=== PATIENT | male | born 1975 | race African-American/Black ===

== ENCOUNTER → 2016-09-27 23:37 | Emergency (ER) | payer SELFPAY ==
[~2016-09-27 23:37] MED LIST: BACTRIM DS TABL1 TA1 PO; GLIPIZIDE10 MG PO; GLIPIZIDE5 MG/BOTTL PO; GLUCOMETER; GLUCOPHAGE500 M1 PO; GLUCOPHAGE500 MG PO; GLUCOSE TEST STRIPS; GLUCOTROL10 MG PO; HUMALOG100 U/ML SUBQ; INSULIN NEEDLES; INSULIN SYR1 DIS.S10 MC; KEFLEX500 MG PO; LANCETS; LEVAQUIN PO; LORTAB 7.5-5001 TAB PO; MAG-OXIDE400 MG PO; METFORMIN HCL500 M1 PO; METFORMIN PO; NOVOLIN 70/30 V10 M1 SUBQ; NOVOLIN 70100 UNITS/ SUBQ; NOVOLOG100 U/ML SUBQ; NOVOLOG7030 SUBQ; VICODIN 5/1 TAB 5/50 PO; [UNRECOGNIZED DRUG - OTHER]
== END | disposition left against medical advice (07) ==
LOC: CED 23:37
DX: Z53.21 Procedure and treatment not carried out due to patient leaving prior to being seen by health care provider (principal)
CPT/HCPCS: 82947